=== PATIENT | female | born 1955 | race Caucasian/White ===

== ENCOUNTER → 2019-04-11 09:49 | Outpatient (CLI) | payer MEDICARE, SELFPAY ==
[2019-04-11 10:46] LABS: Add Manual Diff / Slide Review NO; Basophils Absolute Auto 100 /uL (0-100); Basophils Percent Auto 1.2 % (0-2); Eosinophils Absolute Auto 400 /uL (0-450); Eosinophils Percent Auto 3.5 % (2-4); Hemoglobin 14.8 g/dL (12.0-16.0); Lymphocytes Absolute Auto 2400 /uL (1100-4500); Lymphocytes Percent Auto 21.7 % (25-40); Mean Corpuscular HGB Conc 33.6 % (30-36); Mean Corpuscular Hemoglobin 29.2 PG (26-34); Mean Corpuscular Volume 86.8 fL (80-100); Monocytes Absolute Auto 600 /uL (0-900); Monocytes Percent Auto 5.6 % (3-14); Neutrophils Absolute Auto 7500 /uL (1500-7000); Platelet Count 260 X10^3/uL (150-400); Red Blood Cell Count 5.06 X10^6/uL (4.0-5.2); Red Cell Distribution Width 14.3 % (11.6-14.8)
[2019-04-11 10:49] LABS: Hemoglobin A1C% w Est Avg Glu 6.6 % (4.0-6.0)
[2019-04-11 10:58] LABS: Alanine Aminotransferase 19 IU/L (9-52); Albumin 4.1 g/dL (3.5-5.0); Albumin Globulin Ratio 1.3 (1.0-2.8); Alkaline Phosphatase 72 U/L (38-126); Aspartate Aminotransferase 18 IU/L (14-36); BUN Creatinine Ratio 31.3 (6-22); Bilirubin Total 0.6 mg/dL (0.2-1.3); Blood Urea Nitrogen 25 mg/dL (7-17); Calcium 9.9 mg/dL (8.4-10.2); Carbon Dioxide 30 mmol/L (22-32); Chloride 100 mmol/L (98-107); Cholesterol 134 mg/dL (140-199); Estimated Glomerular Filt Rate > 60.0 mL/min (>60); Globulin 3.1 g/dL (1.7-4.1); Glucose 160 mg/dL (80-110); HDL Cholesterol 38 mg/dL (40-60); HEMOLYSIS < 15 (0-50); LDL Cholesterol Calculated 50 mg/dL (<100); Potassium 4.4 mmol/L (3.4-5.1); Sodium 141 mmol/L (137-145); Total Protein 7.2 g/dL (6.3-8.2); Triglycerides 228 mg/dL (35-150)
[2019-04-11 11:11] LABS: Appearance Urine UA CLEAR; Bilirubin Urine UA NEGATIVE (NEGATIVE); Color Urine UA YELLOW; Glucose Urine UA NEGATIVE (Negative); Ketones Urine UA NEGATIVE (NEGATIVE); Leukocyte Esterase Urine UA NEGATIVE (NEGATIVE); Nitrite Urine UA NEGATIVE (Negative); Occult Blood Urine UA NEGATIVE (Negative); Protein Urine UA NEGATIVE (Negative); Specific Gravity Urine UA 1.015 (1.000-1.035); Urobilinogen Urine UA 0.2 E.U./dL (0.2)
[2019-04-11 11:18] LABS: pH Urine UA 5.5 (4.5-8.0)
[2019-04-11 11:28] LABS: Thyroid Stimulating Hormone 1.51 uIU/mL (0.47-4.68)
== END ==
PROVIDERS: PCP Family Medicine; Visit Provider Family Medicine
DX: E11.9 Type 2 diabetes mellitus without complications (principal); F32.9 Major depressive disorder, single episode, unspecified; G43.909 Migraine, unspecified, not intractable, without status migrainosus; G47.30 Sleep apnea, unspecified; M19.90 Unspecified osteoarthritis, unspecified site; M85.80 Other specified disorders of bone density and structure, unspecified site; Z87.898 Personal history of other specified conditions
CPT/HCPCS: 36415; 80053; 80061; 81003; 83036; 84443; 85025

== ENCOUNTER 2019-05-18 11:09 | Emergency (ER) | payer MEDICARE, SELFPAY ==
[2019-05-18 11:38] VITALS: BP 133/87; PULSE 65; RESP 18; TEMP 36.1; O2SAT 94
[2019-05-18 13:34] VITALS: BP 120/74; BP 121/76; PULSE 69; RESP 16; TEMP 36.4; O2SAT 94
--- NOTE | 2019-05-18 14:59 | ED_ITS ---
HPI - Recheck/Abnormal Lab/Rx <Ayde Espinomegha SENIOR SYSTEM OPERATOR-BC - Last Filed: 05/18/19 17:58> General Chief Complaint: Recheck/Abnormal Lab/Rx Stated Complaint: TOOK TOO MUCH MEDICATION MORN AND BRENDA PILLS Time Seen by Provider: 05/18/19 13:40 Source: patient Mode of arrival: Wheelchair Limitations: no limitations History of Present Illness HPI narrative: The patient is a 64-year-old female nonsmoker presents with her for chief complaint of accidentally taking too much medication this morning. She states that she ?automatically by reflex took her night medication in addition to her morning medications this morning while she was getting her pill dispenser set up. She states that she accidentally took clonidine 0.1 mg x2, hydralazine 50 mg x2, omeprazole 40 mg x2 and Lyrica 100 mg x2. She is supposed to take single doses of all these medications. She states that she took one of her pain medication by accident. She states that she took double doses of her medications at 9:15 a.m.. She is very concerned as these are high blood pressure medications and she wants to make sure that her blood pressure is okay. She denies any current lightheadedness or dizziness, chest pain or shortness of breath. She states that she was not trying to hurt herself, does to come by accident. Related Data Home Medications Medication Instructions Recorded Confirmed aspirin 81 mg tablet,delayed 81 mg PO DAILY 04/02/19 05/18/19 release cholecalciferol (vitamin D3) 5,000 5,000 unit PO DAILY 04/02/19 05/18/19 unit tablet multivitamin with minerals 1 cap PO DAILY 04/02/19 05/18/19 metoprolol succinate 150 mg PO DAILY 05/18/19 05/18/19 oxycodone-acetaminophen 1 tab PO Q6HR PRN MDD 3 tabs 05/18/19 05/18/19 pregabalin 100 mg PO BID 05/18/19 05/18/19 Previous Rx's Medication Instructions Recorded atorvastatin 10 mg tablet 10 mg PO QPM #90 tab 04/02/19 celecoxib 200 mg capsule 200 mg PO DAILY #90 cap 04/02/19 clonidine HCl 0.1 mg tablet 0.1 mg PO BID #180 tab 04/02/19 duloxetine 60 mg capsule,delayed 60 mg PO DAILY #90 cap 04/02/19 release hydralazine 50 mg tablet 50 mg PO TID #270 tab 04/02/19 losartan 100 1 tab PO DAILY #90 tab 04/02/19 mg-hydrochlorothiazide 25 mg tablet metformin 500 mg tablet 500 mg PO DAILY #90 tab 04/02/19 omeprazole 40 mg capsule,delayed 40 mg PO BID #180 cap 04/02/19 release Allergies Allergy/AdvReac Type Severity Reaction Status Date / Time azithromycin Allergy Severe hives Verified 05/18/19 11:40 propoxyphene [From Darvon] Allergy Severe hives, Verified 05/18/19 11:40 nausea voimiting Review of Systems <HENRY Gage - Last Filed: 05/18/19 17:58> Review of Systems Narrative: GENERAL: See HPI HEENT: Denies sinus pain, ear pain, sore throat, difficulty swallowing, dizziness. RESPIRATORY: Denies dyspnea, cough, wheezing, hemoptysis, sputum. CARDIOVASCULAR: Denies chest pain, palpitations, orthopnea, edema, GASTROINTESTINAL: Denies nausea, vomiting, abdominal pain, diarrhea, constipation, melena. : Denies dysuria, frequency, incontinence, hematuria, urinary retention. MUSCULOSKELETAL: denies weakness, joint pain, or bony pain SKIN: Denies rash, skin lesions, or other NEUROLOGIC: Denies weakness, headache, numbness, change in speech, confusion, seizures, incoordination. PSYCHIATRIC: No concerning psychosocial issues. 12 point review of systems is negative except for those stated above Patient History <HENRY Gage - Last Filed: 05/18/19 17:58> Family History (Updated 03/29/19 @ 11:18 by Maryuri Kasper) Father Cancer Grandfather Cancer Family/Other Brain tumor Social History Smoking Status: Never smoker alcohol intake frequency: 0-2 drinks per day Substance Use Type: does not use Exam <HENRY Gage - Last Filed: 05/18/19 17:58> Narrative Exam Narrative: GENERAL: This is a well-nourished, well-developed patient, in no acute distress HEAD: Atraumatic. Normocephalic. No temporal or scalp tenderness. EYES: Pupils equal round and reactive. Extraocular motions intact. No scleral icterus. No injection or drainage. ENT: Nose without bleeding, purulent drainage or septal hematoma. Throat without erythema, tonsillar hypertrophy or exudate. Uvula midline. Airway patent. NECK: Trachea midline. No JVD or lymphadenopathy. Supple, nontender, no meningeal signs. CARDIOVASCULAR: Regular rate and rhythm RESPIRATORY: Clear to auscultation. Breath sounds equal bilaterally. No wheezes, rales, or rhonchi. No cough. No increased respiratory effort. No accessory muscle use GASTROINTESTINAL: Abdomen soft, non-tender, nondistended. No hepato- splenomegaly, or palpable masses. No guarding. EXTREMITIES: No clubbing, cyanosis, or edema. No joint tenderness, effusion, or edema noted. BACK: Nontender without deformity or crepitance. No flank tenderness. NEURO: AOx3. SKIN: No rash or erythema. Initial Vital Signs Initial Vital Signs: Vital Signs Temperature 97.0 F L 05/18/19 11:38 Pulse Rate 65 05/18/19 11:38 Respiratory Rate 18 05/18/19 11:38 Blood Pressure 133/87 05/18/19 11:38 Pulse Oximetry 94 05/18/19 11:38 <Justin Velasquez DO - Last Filed: 05/19/19 09:21> Initial Vital Signs Initial Vital Signs: Vital Signs Temperature 97.0 F L 05/18/19 11:38 Pulse Rate 65 05/18/19 11:38 Respiratory Rate 18 05/18/19 11:38 Blood Pressure 133/87 05/18/19 11:38 Pulse Oximetry 94 05/18/19 11:38 Scores <HENRY Gage - Last Filed: 05/18/19 17:58> GCS Buda coma scale eye opening: Spontaneous B[place] coma scale verbal response: Orientated B[place] coma scale motor response: Obey commands Anay coma scale total score: 15 Course <HENRY Gage - Last Filed: 05/18/19 17:58> Vital Signs Vital signs: Vital Signs - 8 hr 05/18/19 11:38 05/18/19 13:34 05/18/19 15:10 Temperature 97.0 F L 97.5 F L Pulse Rate 65 69 Pulse Rate [Orthostatic Lying] 65 Pulse Rate [Orthostatic Sitting] 65 Pulse Rate [Orthostatic Standing] 65 Respiratory Rate 18 16 Blood Pressure 133/87 Blood Pressure [Left Wrist] 120/74 Blood Pressure [Orthostatic Lying] 124/78 Blood Pressure [Orthostatic Sitting] 121/93 H Blood Pressure [Orthostatic Standing] 127/88 Blood Pressure [Right Arm] 121/76 Pulse Oximetry 94 94 <Justin Velasquez DO - Last Filed: 05/19/19 09:21> Vital Signs Vital signs: Vital Signs - 8 hr 05/18/19 11:38 05/18/19 13:34 05/18/19 15:10 Temperature 97.0 F L 97.5 F L Pulse Rate 65 69 Pulse Rate [Orthostatic Lying] 65 Pulse Rate [Orthostatic Sitting] 65 Pulse Rate [Orthostatic Standing] 65 Respiratory Rate 18 16 Blood Pressure 133/87 Blood Pressure [Left Wrist] 120/74 Blood Pressure [Orthostatic Lying] 124/78 Blood Pressure [Orthostatic Sitting] 121/93 H Blood Pressure [Orthostatic Standing] 127/88 Blood Pressure [Right Arm] 121/76 Pulse Oximetry 94 94 MDM - Recheck/Abnormal Lab/Rx <HENRY Gage - Last Filed: 05/18/19 17:58> MDM Narrative Medical decision making narrative: The patient is a 64-year-old female who presents with a chief complaint of accidentally taking her nighttime medication in addition or morning medication at 9:15 a.m. this morning. Poison Control was contacted, and they stated at this point the patient should be okay to discharge home. Nursing spoke with Stalin, poison Control pharmacist. He recommends discharge home, with strict return precautions and that the patient not take nighttime medications. Her vital signs were stable throughout her stay in the emergency department. EKG was done by nursing. Orthostatics were normal. Patient has no questions or concerns upon discharge and states understanding of return precautions of any acute his concerns as well as follow-up care. Discharge Plan Departure Patient Disposition: Home Clinical Impression: Accidental medication overdose Qualifiers: Encounter type: initial encounter Qualified Code(s): T50.901A - Poisoning by unspecified drugs, medicaments and biological substances, accidental (uninte ntional), initial encounter Discharge Date/Time: 05/18/19 15:50 Instructions: Dos and Don'ts for Prescription Medications, DI for Safely Taking and Storing Medications -- Adults Activity Restrictions/Additional Instructions: We spoke with Poison Control regarding your accidental medication overdose today. They would like you to hold your nighttime medications today. Please come back to the emergency department for any acute concerns such as chest pain, shortness of breath etc Stalin the pharmacist from [facility] Control was contacted. You can reach them at [phone]. Please follow up with primary care provider in the next few days. Prescriptions: No Action cholecalciferol (vitamin D3) 5,000 unit tablet 5,000 unit PO DAILY RF: 0 aspirin [Adult Low Dose Aspirin] 81 mg tablet,delayed release (DR/EC) 81 mg PO DAILY RF: 0 multivitamin with minerals Capsule 1 cap PO DAILY RF: 0 atorvastatin 10 mg tablet 10 mg PO QPM Qty: 90 RF: 1 celecoxib 200 mg capsule 200 mg PO DAILY Qty: 90 RF: 1 clonidine HCl 0.1 mg tablet 0.1 mg PO BID Qty: 180 RF: 1 duloxetine 60 mg capsule,delayed release(DR/EC) 60 mg PO DAILY Qty: 90 RF: 1 hydralazine 50 mg tablet 50 mg PO TID Qty: 270 RF: 1 losartan-hydrochlorothiazide 100-25 mg tablet 1 tab PO DAILY Qty: 90 RF: 1 metformin 500 mg tablet 500 mg PO DAILY Qty: 90 RF: 1 omeprazole 40 mg capsule,delayed release(DR/EC) 40 mg PO BID Qty: 180 RF: 1 oxycodone-acetaminophen 7.5-325 mg tablet 1 tab PO Q6HR MDD 3 tabs PRN (Reason: Pain (Scale Score 7-10)) RF: 0 pregabalin 50 mg capsule 100 mg PO BID RF: 0 metoprolol succinate 100 mg tablet extended release 24 hr 150 mg PO DAILY RF: 0 Referrals: Yeimy Reyes DO [Primary Care Provider] -
[2019-05-18 15:10] VITALS: BP 121/93; BP 124/78; BP 127/88; PULSE 65
== END 2019-05-18 15:50 | disposition home or self-care (01) ==
PROVIDERS: Emergency Provider Nurse Practitioner Family; PCP Family Medicine
DX: T46.5X1A Poisoning by other antihypertensive drugs, accidental (unintentional), initial encounter (principal); T47.1X1A Poisoning by other antacids and anti-gastric-secretion drugs, accidental (unintentional), initial encounter; T42.6X1A Poisoning by other antiepileptic and sedative-hypnotic drugs, accidental (unintentional), initial encounter
CPT/HCPCS: 93005; 99283

== ENCOUNTER → 2019-12-04 13:52 | Outpatient (CLI) | payer MEDICARE, SELFPAY ==
[2019-12-04 14:39] LABS: Hemoglobin A1C% w Est Avg Glu 6.8 % (4.0-6.0)
[2019-12-04 14:45] LABS: BUN Creatinine Ratio 29.3 (6-22); Blood Urea Nitrogen 24 mg/dL (7-17); Calcium 9.7 mg/dL (8.4-10.2); Carbon Dioxide 28 mmol/L (22-32); Chloride 100 mmol/L (98-107); Estimated Glomerular Filt Rate > 60.0 mL/min (>60); Glucose 160 mg/dL (80-110); HEMOLYSIS < 15 (0-50); Potassium 3.6 mmol/L (3.4-5.1); Sodium 139 mmol/L (137-145)
[2019-12-04 15:16] LABS: TSH w/ Reflex to FT4 1.12 uIU/mL (0.47-4.68)
[2019-12-04 17:08] LABS: Vitamin D 25 Hydroxy (D3) 49.1 ng/mL (30.0-100.0)
== END ==
PROVIDERS: PCP Student in an Organized Health Care Education/Training Program; Referring Provider Student in an Organized Health Care Education/Training Program; Visit Provider Student in an Organized Health Care Education/Training Program
DX: E11.9 Type 2 diabetes mellitus without complications (principal); I10 Essential (primary) hypertension; E55.9 Vitamin D deficiency, unspecified; G62.9 Polyneuropathy, unspecified
CPT/HCPCS: 36415; 80048; 82306; 83036; 84443

== ENCOUNTER → 2020-07-25 08:54 | Outpatient (CLI) | payer MEDICARE, SELFPAY ==
[2020-07-25] MEDS: COVID-19 VACC #1, MRNA(MOD) 100 MCG/0.5 ML VIAL IM (09:01)
== END ==
PROVIDERS: PCP Student in an Organized Health Care Education/Training Program; Visit Provider Internal Medicine
DX: Z23 Encounter for immunization (principal)
CPT/HCPCS: 0011A; 91301

== ENCOUNTER → 2020-07-31 11:32 | Outpatient (CLI) | payer MEDICARE, SELFPAY ==
[2020-07-31 12:26] LABS: Creatinine Urine Random 111.8 mg/dL
[2020-07-31 12:31] LABS: Microalbumi Creatinin Ratio Ur 34.8 ug/mg CR (<30); Microalbumin Urine Random 3.9 mg/dL (0-1.6)
[2020-07-31 13:42] LABS: Hemoglobin A1C% w Est Avg Glu 7.2 % (4.0-6.0)
== END ==
PROVIDERS: PCP Student in an Organized Health Care Education/Training Program; Referring Provider Student in an Organized Health Care Education/Training Program; Visit Provider Student in an Organized Health Care Education/Training Program
DX: E11.9 Type 2 diabetes mellitus without complications (principal)
CPT/HCPCS: 36415; 82043; 82570; 83036

== ENCOUNTER → 2020-08-22 09:55 | Outpatient (CLI) | payer MEDICARE, SELFPAY ==
[2020-08-22] MEDS: COVID-19 VACC #2, MRNA(MOD) 100 MCG/0.5 ML VIAL IM (10:02)
== END ==
PROVIDERS: PCP Student in an Organized Health Care Education/Training Program; Visit Provider Internal Medicine
DX: Z23 Encounter for immunization (principal)
CPT/HCPCS: 0012A; 91301

== ENCOUNTER → 2020-09-30 09:45 | Outpatient (CLI) | payer MEDICARE, SELFPAY ==
--- NOTE | 2020-09-30 09:49 | DI.MG.S_ITS ---
BILATERAL DIGITAL SCREENING MAMMOGRAM 3D/2D WITH CAD: 09/30/2020 CLINICAL: Routine screening. Comparison is made to exams dated: 03/01/2016 mammogram and 08/01/2013 mammogram - [facility]. The tissue of both breasts is predominantly fatty. Current study was also evaluated with a Computer Aided Detection (CAD) system. There are benign calcifications in the left breast. No significant masses, calcifications, or other findings are seen in either breast. There has been no significant interval change. IMPRESSION: BENIGN There is no mammographic evidence of malignancy. A 1 year screening mammogram is recommended. This exam was interpreted at Station ID: [id number]. NOTE: For mammograms, a report in lay terms will be sent to the patient. Approximately 15% of breast malignancies will not be visualized mammographically. In the management of a palpable breast mass, a negative mammogram must not discourage biopsy of a clinically suspicious lesion. Electronically Signed By: Ingrid [email or web address]:09/30/2020 11:12:54 letter sent: Normal Exam ACR BI-RADS Category 2: Benign Finding(s) 3342F
== END ==
PROVIDERS: PCP Student in an Organized Health Care Education/Training Program; Referring Provider Student in an Organized Health Care Education/Training Program; Visit Provider Student in an Organized Health Care Education/Training Program
DX: Z12.31 Encounter for screening mammogram for malignant neoplasm of breast (principal); M81.0 Age-related osteoporosis without current pathological fracture; Z78.0 Asymptomatic menopausal state; E11.9 Type 2 diabetes mellitus without complications; Z90.722 Acquired absence of ovaries, bilateral
CPT/HCPCS: 77063; 77067; 77080; 77081

== ENCOUNTER → 2021-01-21 11:33 | Outpatient (CLI) | payer MEDICARE, SELFPAY ==
[2021-01-21 13:12] LABS: BUN Creatinine Ratio 37.1 (6-22); Blood Urea Nitrogen 26 mg/dL (7-17); Estimated Glomerular Filt Rate > 60.0 mL/min (>60)
[2021-01-21 13:17] LABS: Hemoglobin A1C% w Est Avg Glu 7.3 % (4.0-6.0)
[2021-01-21 15:58] LABS: Creatinine Urine Random 114.2 mg/dL
[2021-01-21 16:03] LABS: Microalbumi Creatinin Ratio Ur 25.3 ug/mg CR (<30); Microalbumin Urine Random 2.9 mg/dL (0-1.6)
== END ==
PROVIDERS: PCP Student in an Organized Health Care Education/Training Program; Referring Provider Student in an Organized Health Care Education/Training Program; Visit Provider Student in an Organized Health Care Education/Training Program
DX: E11.42 Type 2 diabetes mellitus with diabetic polyneuropathy (principal)
CPT/HCPCS: 36415; 82043; 82565; 82570; 83036; 84520

== ENCOUNTER → 2021-02-12 09:52 | Outpatient (CLI) | payer MEDICARE, SELFPAY ==
[2021-02-19 13:12] LABS: Metanephrine,Plasma <10.0 pg/mL (0.0-88.0)
[2021-02-19 16:12] LABS: Aldosterone/Renin Activity Rat >21.6 (0.0-30.0); Plama Renin, LC/MS/MS <0.167 ng/mL/hr (0.167-5.380)
== END ==
PROVIDERS: PCP Student in an Organized Health Care Education/Training Program; Referring Provider Student in an Organized Health Care Education/Training Program; Visit Provider Student in an Organized Health Care Education/Training Program
DX: I10 Essential (primary) hypertension (principal)
CPT/HCPCS: 36415; 82088; 83835; 84244

== ENCOUNTER → 2021-02-14 08:59 | Outpatient (CLI) | payer MEDICARE, SELFPAY ==
[2021-02-14 10:12] LABS: Collection Time Urine 24 Hours; Sodium 24 Hour Urine 139 mmol/day (40-220); Sodium Urine Random 66 mmol/L (30-90); Total Volume Urine 2100 mL
[2021-02-20 22:39] LABS: Creatinine, 24 Urine 1163 mg/24 hr (800-1800); Creatinine,Urine 55.4 mg/dL (Not Estab.)
== END ==
PROVIDERS: PCP Student in an Organized Health Care Education/Training Program; Referring Provider Student in an Organized Health Care Education/Training Program; Visit Provider Student in an Organized Health Care Education/Training Program
DX: I10 Essential (primary) hypertension (principal)
CPT/HCPCS: 82088; 82570; 84300

== ENCOUNTER → 2021-08-17 10:37 | Outpatient (CLI) | payer OTHER, SELFPAY ==
[2021-08-17 11:36] LABS: Hemoglobin A1C% w Est Avg Glu 7.7 % (4.0-6.0)
[2021-08-17 12:47] LABS: BUN Creatinine Ratio 30.1 (6-22); Blood Urea Nitrogen 22 mg/dL (7-17); Estimated Glomerular Filt Rate > 60.0 mL/min (>60)
== END ==
PROVIDERS: PCP Student in an Organized Health Care Education/Training Program; Referring Provider Student in an Organized Health Care Education/Training Program; Visit Provider Student in an Organized Health Care Education/Training Program
DX: E11.42 Type 2 diabetes mellitus with diabetic polyneuropathy (principal)
CPT/HCPCS: 36415; 82565; 83036; 84520

== ENCOUNTER → 2021-11-03 11:47 | Outpatient (CLI) | payer OTHER, SELFPAY ==
[2021-11-03 13:13] LABS: Hematocrit 41.1 % (36-46); Hemoglobin 14.2 g/dL (12.0-16.0); Mean Corpuscular HGB Conc 34.5 % (30-36); Platelet Count 234 X10^3/uL (150-400); Red Blood Cell Count 4.89 X10^6/uL (4.0-5.2); Red Cell Distribution Width 15.1 % (11.6-14.8); White Blood Cell Count 11.8 X10^3/uL (4.5-11.0)
[2021-11-03 13:25] LABS: BUN Creatinine Ratio 32.4 (6-22); Blood Urea Nitrogen 22 mg/dL (7-17); Calcium 9.5 mg/dL (8.4-10.2); Carbon Dioxide 32 mmol/L (22-32); Chloride 100 mmol/L (98-107); Estimated Glomerular Filt Rate > 60 mL/min (>60); Glucose 177 mg/dL (80-110); HEMOLYSIS < 15 (0-50); Sodium 140 mmol/L (137-145)
[2021-11-03 13:28] LABS: Appearance Urine UA CLEAR; Bilirubin Urine UA NEGATIVE (NEGATIVE); Color Urine UA YELLOW; Glucose Urine UA NEGATIVE (Negative); Ketones Urine UA NEGATIVE (NEGATIVE); Leukocyte Esterase Urine UA NEGATIVE (NEGATIVE); Nitrite Urine UA NEGATIVE (Negative); Occult Blood Urine UA NEGATIVE (Negative); Protein Urine UA NEGATIVE (Negative); Specific Gravity Urine UA 1.015 (1.000-1.035); Urobilinogen Urine UA 0.2 E.U./dL (0.2)
[2021-11-03 13:36] LABS: Hemoglobin A1C% w Est Avg Glu 7.9 % (4.0-6.0)
[2021-11-03 13:48] LABS: RBC Urine 0-1/HPF (0-5/HPF); Squamous Epithelial Cell Urine 0-1 /HPF (0-5/HPF); WBC Urine 0-1/HPF (0-5/HPF)
[2021-11-03 13:49] LABS: Bacteria Urine Few (2-10); Culture Indicated Urine Cult Not Indicated
[2021-11-03 16:33] LABS: Creatinine Urine Random 70.3 mg/dL
[2021-11-03 16:37] LABS: Microalbumi Creatinin Ratio Ur 15.6 ug/mg CR (<30); Microalbumin Urine Random 1.1 mg/dL (0-1.6)
== END ==
PROVIDERS: PCP Student in an Organized Health Care Education/Training Program; Referring Provider Student in an Organized Health Care Education/Training Program; Visit Provider Student in an Organized Health Care Education/Training Program
DX: E11.42 Type 2 diabetes mellitus with diabetic polyneuropathy (principal); R23.1 Pallor; R53.83 Other fatigue; E11.9 Type 2 diabetes mellitus without complications; I10 Essential (primary) hypertension; R30.0 Dysuria; R31.9 Hematuria, unspecified
CPT/HCPCS: 36415; 80048; 81001; 82043; 82570; 83036; 85027

== ENCOUNTER → 2022-05-11 11:01 | Outpatient (CLI) | payer OTHER, SELFPAY ==
[2022-05-11 11:59] LABS: BUN Creatinine Ratio 27.3 (6-22); Blood Urea Nitrogen 24 mg/dL (7-17); Estimated Glomerular Filt Rate > 60 mL/min (>60)
[2022-05-11 12:01] LABS: Hemoglobin A1C% w Est Avg Glu 6.4 % (4.0-6.0)
[2022-05-11 12:11] LABS: Appearance Urine UA CLEAR; Bilirubin Urine UA NEGATIVE (NEGATIVE); Color Urine UA YELLOW; Glucose Urine UA NEGATIVE (Negative); Ketones Urine UA NEGATIVE (NEGATIVE); Leukocyte Esterase Urine UA 1+ (NEGATIVE); Nitrite Urine UA POSITIVE (Negative); Occult Blood Urine UA NEGATIVE (Negative); Protein Urine UA TRACE (Negative); Urobilinogen Urine UA 0.2 E.U./dL (0.2)
[2022-05-11 12:46] LABS: Bacteria Urine Many (>30); RBC Urine 0-1/HPF (0-5/HPF); Squamous Epithelial Cell Urine 0-1 /HPF (0-5/HPF); WBC Urine 5-10/HPF (0-5/HPF)
[2022-05-11 12:47] LABS: Culture Indicated Urine Specimen Cultured
== END ==
PROVIDERS: PCP Student in an Organized Health Care Education/Training Program; Referring Provider Student in an Organized Health Care Education/Training Program; Visit Provider Student in an Organized Health Care Education/Training Program
DX: E11.42 Type 2 diabetes mellitus with diabetic polyneuropathy (principal); I10 Essential (primary) hypertension; R30.0 Dysuria; R32 Unspecified urinary incontinence
CPT/HCPCS: 36415; 81001; 82565; 83036; 84520; 87077; 87086; 87186

== ENCOUNTER → 2022-08-16 11:03 | Outpatient (CLI) | payer OTHER, SELFPAY ==
--- NOTE | 2022-08-16 11:05 | DI.MG.S_ITS ---
BILATERAL DIGITAL SCREENING MAMMOGRAM 3D/2D WITH CAD: 08/16/2022 CLINICAL: Routine screening. Family history of breast cancer. Comparison is made to exams dated: 09/30/2020 mammogram - [facility], 03/01/2016 mammogram, 08/01/2013 mammogram, and 01/22/2009 mammogram - [facility]. Both breasts are almost entirely fatty (category a/<25% glandular tissue). Current study was also evaluated with a Computer Aided Detection (CAD) system. There are benign calcifications in the left breast. No significant masses, calcifications, or other findings are seen in either breast. There has been no significant interval change. IMPRESSION: BENIGN There is no mammographic evidence of malignancy. A 1 year screening mammogram is recommended. Based on the Tyrer Cuzick model (a risk assessment model) the patient's lifetime risk is 2.3% and her 10 year risk is 1.4%. According to the ACR, ACS, and NCCN guidelines, an annual breast MRI exam along with mammogram is recommended if the patient's lifetime risk is 20% or greater. This exam was interpreted at Station ID: [id number]. NOTE: For mammograms, a report in lay terms will be sent to the patient. Approximately 15% of breast malignancies will not be visualized mammographically. In the management of a palpable breast mass, a negative mammogram must not discourage biopsy of a clinically suspicious lesion. Electronically Signed By: Hank [email or web address]:08/16/2022 13:11:29 letter sent: Normal Exam ACR BI-RADS Category 2: Benign Finding(s) 3342F
== END ==
PROVIDERS: PCP Student in an Organized Health Care Education/Training Program; Referring Provider Student in an Organized Health Care Education/Training Program; Visit Provider Student in an Organized Health Care Education/Training Program
DX: Z78.0 Asymptomatic menopausal state (principal); Z12.31 Encounter for screening mammogram for malignant neoplasm of breast; Z13.820 Encounter for screening for osteoporosis; Z80.3 Family history of malignant neoplasm of breast; Z79.83 Long term (current) use of bisphosphonates; Z92.23 Personal history of estrogen therapy
CPT/HCPCS: 77063; 77067; 77080

== ENCOUNTER → 2022-10-28 10:36 | Outpatient (CLI) | payer OTHER, SELFPAY ==
[2022-10-28 13:27] LABS: BUN Creatinine Ratio 32.1 (6-22); Blood Urea Nitrogen 27 mg/dL (7-17); Calcium 9.9 mg/dL (8.4-10.2); Carbon Dioxide 32 mmol/L (22-32); Chloride 101 mmol/L (98-107); Cholesterol 141 mg/dL (140-199); Estimated Glomerular Filt Rate > 60 mL/min (>60); Glucose 111 mg/dL (80-110); HDL Cholesterol 45 mg/dL (40-60); HEMOLYSIS < 15 (0-50); LDL Cholesterol Calculated 64 mg/dL (<100); Potassium 4.2 mmol/L (3.4-5.1); Sodium 139 mmol/L (137-145); Triglycerides 160 mg/dL (35-150)
[2022-10-28 14:37] LABS: Creatinine Urine Random 75.2 mg/dL
[2022-10-28 14:42] LABS: Microalbumi Creatinin Ratio Ur 17.2 ug/mg CR (<30); Microalbumin Urine Random 1.3 mg/dL (0-1.6)
[2022-10-29 09:34] LABS: x Labcorp Estim. Avg Glu (eAG) 128 mg/dL (.); x Labcorp Hemoglobin A1c 6.1 % (4.8-5.6)
== END ==
PROVIDERS: PCP Student in an Organized Health Care Education/Training Program; Referring Provider Student in an Organized Health Care Education/Training Program; Visit Provider Student in an Organized Health Care Education/Training Program
DX: E11.42 Type 2 diabetes mellitus with diabetic polyneuropathy (principal); E11.69 Type 2 diabetes mellitus with other specified complication; E78.5 Hyperlipidemia, unspecified; I10 Essential (primary) hypertension
CPT/HCPCS: 36415; 80048; 80061; 82043; 82570; 83036